=== PATIENT | male | born 1975 | race Caucasian/White ===

== ENCOUNTER → 2016-11-09 | Outpatient (CLI) | payer BC ==
[~2016-11-09] MED LIST: DIOVAN; LIPITOR; LISINOPRIL5 MG PO; METFORMIN HCL500 M1 PO; MOBIC PO; MULTIVITAMIN1 UDCAP PO; TESTONE CI200 MG/1 M SUBQ; ZOFRANODT PO
--- NOTE | ~2016-11-09 | EKG ---
PATIENT: YOGESH EM UNIT #: [id number] Ventricular Rate: 76 BPM Atrial Rate: 76 BPM P-R Interval: 140 ms QRS Duration: 86 ms Q-T Interval: 350 ms QTC Calculation(Bezet): 393 ms P [place]: 52 degrees Calculated R [place]: 29 degrees Calculated T [place]: 24 degrees Diagnosis Line: Normal sinus rhythm Diagnosis Line: Normal ECG Diagnosis Line: No previous ECGs available Diagnosis Line: Confirmed by GINA HOLLY MD ([id number]) on Diagnosis Line: 11/09/2016 4:15:28 PM INTERPRETING MD: AVNI VIDES
[2016-11-09 09:54] LABS: BLOOD UREA NITROGEN 18 mg/dL (9-23); BUN/CREATININE RATIO 16.36; CALCIUM SERUM 9.2 mg/dL (8.4-10.2); CARBON DIOXIDE 28 mmol/L (22-31); CHLORIDE 101 mmol/L (100-111); CREATININE SERUM 1.1 mg/dL (0.6-1.4); GLOM FILT RATE Estimated ABOVE60 mL/min (>60); GLUCOSE FASTING 126 mg/dL (70-110); POTASSIUM 3.9 mmol/L (3.5-5.1); SODIUM 137 mmol/L (135-145)
== END | disposition home or self-care (01) ==
LOC: CAMB 08:08
PROVIDERS: Surgery
DX: Z01.818 Encounter for other preprocedural examination (principal); K43.9 Ventral hernia without obstruction or gangrene
CPT/HCPCS: 36415; 80048; 93005

== ENCOUNTER 2016-11-19 07:16 | Day surgery (SDC) | payer BC ==
--- NOTE | ~2016-11-19 | OR ---
Unit #: [id number] #: [id number] Patient: YOGESH EM [id number] [address] [place], [place] [address] [id number] MR#: [id number] NAME: YOGESH EM ROOM: Date of Procedure: 11/19/2016 Admission Date: 11/19/2016 Surgeon: Brain Ventura Jr., M.D. : 1975 Attending Physician: Brain Ventura Jr., M.D. Primary Care Physician: Mark Gee M.D. 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 He also has a diastasis recti, which was felt to be asymptomatic. He is brought in this time for reduction and repair of his incarcerated umbilical hernia, which is fairly large. PREOPERATIVE DIAGNOSIS Large incarcerated umbilical hernia. POSTOPERATIVE DIAGNOSIS Large incarcerated umbilical hernia. FINDINGS The patient had incarcerated omentum within the hernia with the defect approximately 4 cm in diameter. ANESTHESIA General with endotracheal intubation. PROCEDURE PERFORMED Laparoscopic reduction and repair of incarcerated umbilical hernia using a 6 x 8 inch Ventralight mesh. DESCRIPTION OF PROCEDURE The patient was positioned in the supine position. After being anesthetized and intubated, he was prepped and draped in routine fashion for laparoscopic ventral hernia repair. A small 0.5 cm incision was made in the right lateral abdominal wall area and a 5-mm Optiview was introduced into the abdomen followed by the camera. There was no evidence of any injury related to introduction of the Optiview. The omentum was noted to be incarcerated up into his umbilical hernia and an 11-mm port was placed in the right lower quadrant abdominal wall area and a 5-mm port in the left upper and left lower quadrant abdominal wall areas under direct visualization. The omentum was then reduced from the umbilical hernia without any significant problems and the defect itself was approximately 3 to 4 cm in diameter. A 6 x 8 inch Ventralight mesh was then tacked in 4 corners and using the Endo Close technique, it was pulled up against the anterior abdominal wall using four 1 mm incisions and was tacked in place with the absorbable tacks. After this was complete, the sutures holding it up were then cut and removed and there was excellent coverage of the defect and excellent securing of the mesh with the tacks. Unit #: [id number] #: [id number] Patient: YOGESH EM After adequate hemostasis was noted, the fascia in the larger port site was then approximated using the neoClose technique. CO2 was expressed from the abdomen. The ports were removed. There was no evidence of any bleeding from the port sites. The port sites were injected with 0.5% Marcaine without epinephrine. The wounds were irrigated. After hemostasis achieved with Bovie cautery, skin edges were approximated with stainless-steel skin clips and skin stapling device. Sterile dressings were applied externally. Estimated blood loss less than 50 mL. The patient received less than 2000 mL crystalloid solution during the procedure. Sponges and instrument counts were correct x3. No drains were used. No complications. The patient was taken to the recovery room with stable vital signs in satisfactory condition. Dictated by... Brain Ventura Jr., M.D. JMB/jesús TD: 11/20/2016 00:43 JOB #: [id number] OPERATIVE REPORT X Brain Ventura MD X PROCEDURE OPERATIVE NOTE
--- NOTE | ~2016-11-19 | EKG ---
PATIENT: YOGESH EM UNIT #: [id number] Ventricular Rate: 82 BPM Atrial Rate: 82 BPM P-R Interval: 138 ms QRS Duration: 84 ms Q-T Interval: 354 ms QTC Calculation(Bezet): 413 ms P [place]: 47 degrees Calculated R [place]: 41 degrees Calculated T [place]: 24 degrees Diagnosis Line: Normal sinus rhythm Diagnosis Line: Normal ECG Diagnosis Line: Diagnosis Line: Confirmed by ZAFAR TURCIOS MD ([id number]) on 11/22/2016 Diagnosis Line: 7:20:12 AM INTERPRETING MD: KAROLINA VIDES
== END 2016-11-19 14:50 | disposition home or self-care (01) ==
LOC: CSUR 07:16
DX: K42.0 Umbilical hernia with obstruction, without gangrene (principal); K43.9 Ventral hernia without obstruction or gangrene; E66.01 Morbid (severe) obesity due to excess calories; M62.08 Separation of muscle (nontraumatic), other site; I10 Essential (primary) hypertension
CPT/HCPCS: 82947; 93005; C1787; J1170; J1885; J2250; J2270; J2405; J2710; J2765; J3370